=== PATIENT | female | born 1995 | race Caucasian/White ===

== ENCOUNTER 2025-02-18 09:26 | Emergency (ER) | payer BC, SELFPAY ==
--- OUTSIDE RECORDS SUMMARY | 2025-02-18 09:28 | XMS_ITS | Clinical Summary ---
Author Organization [facility] [facility] Address [address] [place] [id number] Care Team Providers Care Judicial Assistant Name Role Phone Yanira Guardado Primary Care Provider Allergies Active Allergy Reactions Criticality Noted Date Comments Doxycycline Nausea And Vomiting 11/29/2017 Joint pain, abd pain Sulfa (Sulfonamide Antibiotics) 12/01/2006 Medications albuterol HFA (PRO-AIR; VENTOLIN; PROVENTIL) 90 mcg/actuation inhalerIndicati ons:SOB (shortness of breath) Inhale 1-2 Puffs by mouth every 4 hours if needed for Shortness Of Breath or Wheezing. 1 Each 3 4 Active inhalational spacing deviceIndicatio ns:SOB (shortness of breath) For home use. 1 Each 4 Active levonorgestrel- ethinyl estrad, 0.1mg-20mcg, (ALESSE-28) 0.1-20 mg-mcg tabletIndicatio ns:Uses control Take 1 Tablet by mouth once daily. 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 Overview (01/25/2015): Vaginal on biopsy Plantar wart 06/20/2011 10/04/2024 Pain in joint, ankle and foot 12/01/2006 10/04/2024 Shortness of breath 12/01/2006 10/05/19 25 Immunizations Immunization Administration Dates Next Due DTaP 11/10/2002, 8,1997,1997, HIB-HepB (Comvax) 03/20/1998,1997,05/25/19 97 Human Papilloma Virus Vaccine 07/23/2012, 012,12/23/2011 Inactivated Polio Vaccine 11/10/2002 Influenza,CCIIV4 PRESERV FREE 03/27/2017 MMR 11/10/2002,03/20/1998 Oral Polio Vaccine 1997,1997, 997 Tdap 01/30/2010 Tuberculin (PPD) 11/15/2015 Family History Medical History Relation Name Comments Good Health Brother Heart Disease Father [address] Hyperlipidemia Father Cancer-ovarian Mother Good Health Mother Thyroid Disease Mother Good Health Sister Asthma No Family History Cancer-breast No Family History Cancer-colon No Family History Diabetes No Family History Relation Name Status Comments Brother Alive Father Alive Mother Alive Sister Alive Social History Tobacco Use Types Packs/Day Years Used Date Smoking Tobacco: Never Smokeless Tobacco: Never Tobacco Cessation:Counseling Given: Yes Alcohol Use Standard Drinks/Week Comments Yes 0 (1 standard drink = 0.6 oz pure alcohol) once monthly, 1-2 drinks at a sitting PHQ-2 Answer Date Recorded PHQ-2 TOTAL SCORE 3 06/23/2023 Social Connections Answer Date Recorded Do you often feel lonely or isolated from those around you? 0 10/04/2024 Financial Resource Strain Answer Date R ecorded Difficulty of Paying Living Expenses 3 10/04/2024 Difficulty of Paying Living Expenses Not on file 10/04/2024 Food Insecurity Answer Date Recorded Do you worry your food will run out before you are able to buy more? 1 10/04/2024 Transportation Needs Answer Date Record ed Does lack of transportation keep you from medica l appointments? 1 10/04/2024 Does lack of transportation keep you from work, meetings or getting things that you need? 1 10/04/2024 Housing Stability Answer Date Recorded What is your housing situation today? 1 10/04/2024 Utilities Answer Date Recorded Do you have trouble paying f or utilities (for example, heat, electricity, water, phone)? 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 Gender Identity Not on file Sexual Orientation Not on file Obstetrics History Para Term AB IAB SAB Ectopic Multiple Livin g Live Births 0 0 0 0 0 0 0 0 0 0 Last Filed Vital Signs Vital Sign Reading Time Taken Comments Blood Pressure 108/75 10/04/2024 1:09 PM CDT Pulse 98 10/04/2024 1:09 PM CDT Temperature 36.7 C (98 F) 05/10/2024 9:29 AM QUAL RESEARCH MANAGER Respiratory Rate 18 07/17/2021 1:17 PM QUAL RESEARCH MANAGER Oxygen Saturation 99% 07/09/2024 3:16 PM QUAL RESEARCH MANAGER Inhaled Oxygen Concentration - - Weight 89.8 kg (198 lb) 10/04/2024 1:09 PM CDT Height 165 cm (5' 4.96) 10/04/2024 1:09 PM CDT Body Mass Index 32.99 10/04/2024 1:09 PM CDT Plan of Treatment Health Maintenance Due Date Last Done Comments HIV for age 15-65 2012 Hepatitis C screening for age 18-79 2015 Tetanus booster 01/31/2020 01/30/2010 COVID-19 vaccine series ( season) 2024 07/09/2021, 10/10/2020, 09/19/2020 Depression screening for age 12+ 06/23/2024 06/23/2023, 06/21/2023, 06/05/2021, Additional history exists Influenza Vaccine (#1) 2025 03/27/2017 BMI (ht and wt on same day) for age 18+ 10/04/2025 10/04/2024, 05/23/2023, 04/29/2022, Additional history exists Pap test for age 21-65 10/04/2029 , 10/04/2024, 04/16/2021, Additional history exists RSV vaccine for adults or (1 - 1-dose 75+ series) 2072 Hepatitis B series for 19+ Completed 03/20, 1997, 1997 Pneumococcal series for age 6-49 Aged Out No longer eligible based on patient's age to complete this topic Procedures Procedure Name Priority Date/Time Associated Diagnosis Comments RIPSAWYER THIN PREP PAP SCREEN IMAGED Routine 10/04/2024 1:29 PM CDT Screening for cervical cancer from Last 3 Months or Most Recently Relevant to Health Maintenance Results * RIPSAWYER THIN PREP PAP SCREEN IMAGED [[id number]] (10/04/2024 1:29 PM CDT) Case Report Gynecologic Cytology Report Case: [id number] Authorizing Provider: Yanira Guardado PA Collected: 10/04/2024 1329 Ordering Location: [facility] Received: 10/04/2024 1350 Clinic First Screen: Danuta Lockwood Specimen: RIPSAWYER ThinPrep Vial Screening, Cervical 10/20/2024 6:47 PM CDT [email or web address]AL [facility] INTERPRETATION/ RESULT NEGATIVE FOR INTRAEPITHELIAL LESION OR MALIGNANCY (NIL) (none) 10/20/2024 6:47 PM CDT [facility]TR[facility] at 1847 CDT ORGANISM(S) Shift in stefanie suggestive of bacterial vaginosis 10/20/2024 6:47 PM CDT [facility] SPECIMEN ADEQUACY Satisfactory for evaluation Endocervical component present 10/20/2024 6:47 PM CDT [facility] HPV REQUEST HPV and PAP 10/20/2024 6:47 PM CDT [email or web address] Date of LMP 09/07/2024 10/20/2024 6:47 PM CDT [facility] Last Pap Date 04/16/21 10/20/2024 6:47 PM CDT [facility] Last Pap Result NIL 6:47 PM CDT [facility] Abnormal Pap or [place] Bx in last 5 years No 10/20/2024 6:47 PM CDT [facility] Menstrual Status Regular Periods 10/20/2024 6:47 PM CDT [facility] [place] Johns Bx Done Today No 10/20/2024 6:47 PM CDT [facility] Additional Information None given 10/20/2024 6:47 PM CDT [facility] Comment: Cytology is screened at [facility] - [address], [place] [address] and [facility] - [address], [place] [address] and [facility] - [address] [place] [address] Interpreted at [facility] - [address], [place] [address] Automated Review Successful 10/20/2024 6:47 PM CDT [facility] Comment:Specimen processed s uccessfully by automated optician apprentice device, ThinPrep Imaging System, [employer] ANCILLARY TESTING RIPSAWYER HPV Ordered, Please see separate report 10/20/2024 6:47 PM CDT [facility] Note The pap test is a screening technique, not a diagnostic procedure. It is used primarily to screen for squamous cancers and precursor lesions. Published studies have shown that it is subject to both false negative and false positive results. The pap test should not be used as the sole means to diagnose or exclude pre-malignant and malignant lesions. 10/20/2024 6:47 PM CDT [facility] Other (Cervical) Non-Blood / Unknown 10/04/2024 1:29 PM CDT 10/04/2024 1:50 PM CDT Yanira CORRAL PATHOLOGY/CYTOLOGY Raquel turpin Result [facility] [address] [place] [address], from Last 3 Months or Most Recently Relevant to Health Maintenance Insurance [place] [facility] [employer] Care Teams Judicial Assistant Relationship Specialty Start Date End Date Yanira Guardado PA [address] [place] [address] PCP - General Family Practice 03/02/13
[2025-02-18 09:33] VITALS: BP 148/95; PULSE 88; RESP 18; TEMP 36.6; O2SAT 98; BMI 33.5
--- NOTE | 2025-02-18 10:00 | ED.GENADULT ---
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 Most recently has had severe anxiety to the point of not being very functional in terms of she has shaky at times, having trouble sleeping, trouble concentrating, poor appetite. She denies suicidality or hallucinatory activity. Patient denies drug use or alcohol use, she is otherwise healthy. She takes Unisom at night and a control pill and occasional allergy medicine. She has no chest pain, breathing problem, fevers, denies Related Data Home Medications ?Medication ?Instructions ?Recorded ?Confirmed cetirizine 10 mg tablet 10 mg PO QDAY 01/15/22 01/15/22 doxylamine succinate 25 mg tablet 25 mg PO QHS PRN 02/18/25 02/18/25 (Nighttime Sleep-Aid (doxylamine)) levonorgestrel-ethinyl estradiol 1 tab PO DAILY 02/18/25 02/18/25 0.1 mg-20 mcg tablet (Vienva) Allergies Allergy/AdvReac Type Severity Reaction Status Date / Time Sulfa (Sulfonamide Allergy Unknown Verified 01/15/22 13:24 Antibiotics) Review of Systems Status of ROS: Reports: 6 or more systems reviewed and unremarkable except as noted in History and below [facility] Social History Smoking Status: Never smoker How often do you have a drink containing alcohol: monthly or less AUDIT-C Alcohol total score: 1 Non-prescribed substance use: denies use Exam Narrative: Exam Narrative: Objective: Patient's vital signs show slightly elevated diastolic and systolic pressure, O2 sat excellent 9% Alert orient x3 Patient is tearful but alert oriented mental status appears appropriate shows good insight into her situation. Lungs are clear, heart rhythm regular without murmur Abdomen patient denies symptoms Extremities are no edema neurologic nonfocal Const: Vital Signs, click to edit/add: Vital Signs - 24 hr 02/18/25 09:33 02/18/25 11:36 Temperature 97.9 F Pulse Rate [Pulse Oximeter] 88 81 Respiratory Rate 18 16 Blood Pressure [Ri ght Upper Arm] 148/95 H 125/85 Pulse Oximetry 98 99 Oxygen Delivery Me thod Room Air Room Air Course Vital Signs Vital signs: Initial Vital Signs Temperature 97.9 F 02/18/25 09:33 Temperature Source Temporal Artery Scan 02/18/25 09:33 Pulse Rate 88 02/18/25 09:33 Respiratory Rate 18 02/18/25 09:33 Blood Pressure 148/95 H 02/18/25 09:33 Blood Pressure Mean 112 H 02/18/25 09:33 Pulse Oximetry 98 02/18/25 09:33 Oxygen Delivery Method Room Air 02/18/25 09:33 Vital Signs Temperature 97.9 F 02/18/25 09:33 Pulse Rate 88 02/18/25 09:33 Respiratory Rate 18 02/18/25 09:33 Blood Pressure 148/95 H 02/18/25 09:33 Pulse Oximetry 98 02/18/25 09:33 Oxygen Delivery Method Room Air 02/18/25 09:33 Temperature 97.9 F 02/18/25 09:33 Pulse Rate 81 02/18/25 11:36 Respiratory Rate 16 02/18/25 11:36 Blood Pressure 125/85 02/18/25 11:36 Pulse Oximetry 99 02/18/25 11:36 Oxygen Delivery Method Room Air 02/18/25 11:36 Medications Administered Medications: Discontinued Medications Generic Name Dose Route Start Last Admin Trade Name Danny PRN Reason Stop Dose Admin Lorazepam 1 mg 02/18/25 09:59 02/18/25 10:07 Lorazepam 1 Mg Tablet PO 02/18/25 10:00 1 mg ONCE ONE Administration Medical Decision Making MDM Narrative Medical decision making narrative: 29-year-old white female with anxiety and likely depression as well. Would recommend at this time that we give her an Ativan 1 mg orally will give her 0.5 mg take t.i.d. over the next couple of days would recommend she be off work for a couple of days until she sees primary care Jaars again. Would have her use the lorazepam instead of the Unisom, would also discussed with her primary doctor about antianxiety antidepressant medication and perhaps even some mental health therapy. She was comfortable this plan. Will check her laboratory studies and a TSH to make sure they are within normal, she was comfortable this plan. Addendum 11:25 a.m.: The patient's lab studies thus far look unremarkable other than just borderline elevated white blood cell count. This certainly could be stress related as well. She does not appear to have any infectious symptoms. Her TSH is pending. Follow-up with primary care doctor in the next couple of days, talk about stress management depression/anxiety, and perhaps different medications. Would use the lorazepam instead of the Unisom at this time for sleep and for anxiety. Return as needed before primary care appointment. Lab Data Labs: Lab Results 02/18/25 Range/Units 10:15 WBC 12.82 H (4.50-11.00) K/uL RBC 4.53 (4.00-5.20) m/uL Hgb 14.7 (12.0-16.0) gm/dL Hct 42.8 (33.0-51.0) % MCV 95 (80-100) fL MCH 33 (26-34) pg MCHC 34 (32-36) gm/dL RDW Coeff of Rita 12.2 (11.5-15.5) % Plt Count 258 (140-440) K/uL Neut % (Auto) 79.8 H (42.0-72.0) % Lymph % (Auto) 13.9 L (20-44) % [place] % (Auto) 5.0 (0.0-11.0) % Eos % (Auto) 0.9 (0.0-7.0) % Baso % (Auto) 0.2 (0.0-3.0) % Neut # (Auto) 10.20 H (1.7-7.0) K/uL Lymph # (Auto) 1.80 (0.90-2.90) K/uL [place] # (Auto) 0.60 (0.00-0.90) K/UL Eos # (Auto) 0.10 (0.00-0.50) K/uL Baso # (Auto) 0.00 (0.00-0.30) K/uL Abs Immat Gran (auto) 0.00 (0.00-0.30) K/uL Imm/Tot Granulo (auto) 0.2 % Sodium 139 (135-149) mmol/L Potassium 4.0 (3.6-5.1) mmol/L Chloride 104 (96-114) mmol/L Carbon Dioxide 25 (20-32) mmol/L Anion Gap 10 (7-15) mEq/L BUN 8 (5-24) mg/dL Creatinine 1.0 (0.5-1.5) mg/dL Estimated Creat Clear 72.97 Estimated GFR 79 ml/min Glucose 88 (60-115) mg/dL Calcium 10.0 (8.4-10.6) mg/dL TSH 1.580 (0.270-4.20) uIU/mL Discharge Plan Discharge Clinical Impression: Acute anxiety, Depression Patient Disposition: Home w/ Parent or Adult Condition: Stable Additional Instructions: Recommend off work for a couple of days, see her primary care doctor in the next 2-3 days, would use the lorazepam instead of Unisom. Use the lorazepam as needed. Avoid driving alcohol or working with machinery while on lorazepam. Recommend discussion with your primary care doctor about mental health therapy as well. As well could discuss antianxiety and antidepressant medication Activity Level: Light activity Activity Detail: Off work for 2 days Discharge Diet: Regular Prescriptions: No Action cetirizine 10 mg tablet 10 mg PO QDAY Patient Comments: TAKE 1 TABLET BY MOUTH EVERY DAY levonorgestrel-ethinyl estrad [Vienva] 0.1-20 mg-mcg tablet 1 tab PO DAILY Nighttime Sleep-Aid (doxylamn) 25 mg tablet 25 mg PO QHS PRN Follow Up/Referrals: Yanira Guardado PA-C [Primary Care Provider, Family Practice] Stand Alone Forms: [facility] [employer] Info Instructions
[2025-02-18 10:26] LABS: Hematocrit 42.8 % (33.0-51.0); Hemoglobin* 14.7 gm/dL (12.0-16.0); Immature Granulocytes Pct Auto 0.2 %; Mean Corpuscular HGB Conc 34 gm/dL (32-36); Mean Corpuscular Hemoglobin 33 pg (26-34); Mean Corpuscular Volume 95 fL (80-100); RDW Coefficient of Variation % 12.2 % (11.5-15.5); Red Blood Count 4.53 m/uL (4.00-5.20); White Blood Count* 12.82 K/uL (4.50-11.00)
[2025-02-18 10:38] LABS: Immature Granulocytes Abs Auto 0.00 K/uL (0.00-0.30); Lymphocytes Absolute Auto 1.80 K/uL (0.90-2.90); Slide Review Reflex No
[2025-02-18 11:15] LABS: Chloride* 104 mmol/L (96-114); Potassium* 4.0 mmol/L (3.6-5.1); Sodium* 139 mmol/L (135-149)
[2025-02-18 11:18] LABS: Anion Gap 10 mEq/L (7-15); Blood Urea Nitrogen* 8 mg/dL (5-24); Carbon Dioxide* 25 mmol/L (20-32); Creatinine* 1.0 mg/dL (0.5-1.5); Est. Creatinine Clearance* 72.97; Estimated Glomerular Filt Rate 79 ml/min
[2025-02-18 11:19] LABS: Calcium* 10.0 mg/dL (8.4-10.6); Glucose* 88 mg/dL (60-115)
[2025-02-18 11:36] VITALS: BP 125/85; PULSE 81; RESP 16; O2SAT 99
== END 2025-02-18 11:37 | disposition home or self-care (01) ==
PROVIDERS: Emergency Provider Family Medicine; PCP Physician Assistant Medical
DX: F41.8 Other specified anxiety disorders (principal)
CPT/HCPCS: 36415; 80048; 84443; 85025; 99284; A9270